=== PATIENT | female | born 1980 | race Caucasian/White ===

== ENCOUNTER 2017-06-28 19:21 | Emergency (ER) | payer OTHER, MEDICAID ==
[~2017-06-28] VITALS: Ht 162.6 cm; Wt 59.1 kg
[2017-06-28 20:33] VITALS: BP 138/72
== END 2017-06-28 20:33 | disposition home or self-care (01) ==
LOC: ED 19:21
DX: G44.209 Tension-type headache, unspecified, not intractable (principal)